=== PATIENT | female | born 1955 | race Caucasian/White ===

== ENCOUNTER → 2016-12-18 | Outpatient (CLI) | payer BC ==
--- NOTE | 2016-12-18 22:39 | ECGEPIP ---
Stationary ECG Study [facility] Test Date: 2016-12-18 Pat Name: GRISEL SÁNCHEZ Department: Room: - Gender: F [employer] Team Member: POLINA : 1955 Requested By: Darci Hensley Order Number: [id number] Reading MD: Topher Denis Measurements Intervals [place] Rate: 53 P: 46 OK: 174 QRS: 23 QRSD: 76 T: 42 QT: 406 QTc: 384 Interpretive Statements SINUS BRADYCARDIA No prior ECG available for comparison at the time of interpretation. Electronically Signed On 12-18-2016 22:38:45 EDT by Topher Denis
== END ==
LOC: M EKG 13:12
PROVIDERS: ATTEND Orthopaedic Surgery
DX: Z01.810 Encounter for preprocedural cardiovascular examination (principal); R00.1 Bradycardia, unspecified

== ENCOUNTER → 2020-03-02 | Outpatient (REF) | payer MEDICARE, BC | LOC: M LAB REF 12:32 | PROVIDERS: ATTEND Dermatology | DX: C44.41 Basal cell carcinoma of skin of scalp and neck (principal); C44.311 Basal cell carcinoma of skin of nose ==